=== PATIENT | male | born 1950 | race Caucasian/White ===

== ENCOUNTER 2017-07-24 05:45 | Emergency (ER) | payer OTHER ==
[~2017-07-24] VITALS: Ht 177.8 cm; Wt 108.9 kg
[~2017-07-24 05:45] MED LIST: CELEXA40 MG PO; DAZIDOX20 MG; DESYREL50 MG PO; HYDROCHLOROTH12.5 MG PO; LISINOPRIL/HCTZ PO; METHADONE HCL40 MG PO; NEURONTIN 300300 M1 PO; NORCO 5-325 TA1 EACH PO; OXYCODONE HCL20 M1 PO; TIZANIDINE HCL6 MG PO; TOPROL XL50 MG; TRAZODONE 150150 M1 PO; VALIUM5 MG PO
[2017-07-24 06:30] LABS: ABSOLUTE BASOPHILS 0.1 thou/uL (0.0-0.2); ABSOLUTE EOSINOPHILS 0.1 thou/uL (0.0-0.7); ABSOLUTE LYMPHOCYTES 1.4 thou/uL (0.8-5.3); ABSOLUTE MONOCYTES 0.7 thou/uL (0.0-1.2); ABSOLUTE NEUTROPHILS 7.5 thou/uL (1.6-8.1); BASOPHILS 0.9 %; EOSINOPHILS 0.7 %; HEMATOCRIT 41.2 % (42.0-52.0); HEMOGLOBIN 13.6 gm/dL (14.0-18.0); LYMPHOCYTES 14.7 %; MCH 29.3 pg (26.0-34.0); MCHC 32.9 g/dL (28.0-37.0); MONOCYTES 7.5 %; MPV 9.6 fl. (7.2-11.1); NUCLEATED RBCS 0 /100WBC; PLATELET COUNT* 242 thou/uL (150-400); POLYS 76.2 %; RBC 4.63 mil/uL (4.50-6.00); RDW-CV 14.3 % (10.5-14.5); WBC 9.8 thou/uL (4.0-11.0)
[2017-07-24 06:35] LABS: CALCIUM 8.8 mg/dL (8.5-10.1); CREATININE 1.6 mg/dL (0.6-1.3); POTASSIUM 3.7 mmol/L (3.5-5.1)
[2017-07-24 06:39] LABS: ALBUMIN 3.5 g/dL (3.4-5.0); TOTAL BILIRUBIN 0.3 mg/dL (<0.1-1.0); TOTAL PROTEIN 7.6 g/dL (6.4-8.2)
[2017-07-24 07:31] LABS: ALCOHOL < 10 mg/dL (<10)
[2017-07-24 07:34] LABS: ACETAMINOPHEN < 2 ug/mL (10-30)
[2017-07-24 07:39] LABS: PROTIME 9.9 Seconds (9.20-11.50)
[2017-07-24] MEDS ORDERED: ROXICODONE5 M2 PO (07:54)
[2017-07-24 08:08] LABS: URINE BILIRUBIN NEGATIVE (Negative); URINE BLOOD NEGATIVE (Negative); URINE CLARITY CLEAR; URINE COLOR YELLOW; URINE GLUCOSE-RANDOM NEGATIVE (Negative); URINE KETONES NEGATIVE (Negative); URINE LEUKOCYTES-REFLEX NEGATIVE (Negative); URINE NITRITE-REFLEX NEGATIVE (Negative); URINE PROTEIN 1+ (Negative); URINE SPECIFIC GRAVITY 1.015 (1.005-1.030); URINE UROBILINOGEN 0.2 E.U./dl (0.2-1.0)
[2017-07-24 08:14] VITALS: BP 202/104
[2017-07-24 08:23] LABS: AMP/METHAMP POSITIVE (Negative); BARBITURATES Negative (Negative); BENZODIAZEPINES Negative (Negative); COCAINE Negative (Negative); METHADONE Negative (Negative); OPIATES Negative (Negative); PCP Negative (Negative); THC POSITIVE (Negative)
== END 2017-07-24 08:17 | disposition home or self-care (01) ==
LOC: M.ERS 05:45
PROVIDERS: Emergency Medicine Emergency Medical Services; Family Medicine
DX: S40.012A Contusion of left shoulder, initial encounter (principal); S20.229A Contusion of unspecified back wall of thorax, initial encounter; S10.83XA Contusion of other specified part of neck, initial encounter; V49.9XXA Car occupant (driver) (passenger) injured in unspecified traffic accident, initial encounter; Y93.I9 Activity, other involving external motion; Y92.89 Other specified places as the place of occurrence of the external cause; Y99.8 Other external cause status; I10 Essential (primary) hypertension; Z88.5 Allergy status to narcotic agent; Z88.6 Allergy status to analgesic agent

== ENCOUNTER 2017-08-03 12:13 | Inpatient (IN) | payer OTHER ==
[2017-08-03] VITALS (7 sets, daily range): BP systolic 119–180; BP diastolic 50–93
[~2017-08-03] VITALS: Ht 182.9 cm; Wt 108.4 kg
[~2017-08-03 12:13] MED LIST changes: +ROXICODONE5 M2 PO
[2017-08-03 12:36] LABS: HEMOGLOBIN 13.6 gm/dL (14.0-18.0); MCH 29.4 pg (26.0-34.0); MCV 88.8 fL (80.0-100.0); MPV 8.6 fl. (7.2-11.1); NUCLEATED RBCS 0 /100WBC; PLATELET COUNT* 338 thou/uL (150-400); RBC 4.62 mil/uL (4.50-6.00); WBC 13.9 thou/uL (4.0-11.0)
[2017-08-03 12:48] LABS: ANION GAP 7 mmol/L (7-16); BUN 20 mg/dL (7-18); CALCIUM 8.7 mg/dL (8.5-10.1); CHLORIDE 106 mmol/L (98-107); CO2 28 mmol/L (21-32); GLUCOSE 91 mg/dL (70-99); POTASSIUM 4.1 mmol/L (3.5-5.1); SODIUM 141 mmol/L (136-145)
[2017-08-03 12:53] LABS: ALCOHOL < 10 mg/dL (<10); SALICYLATE < 2.8 mg/dL (2.8-20.0)
[2017-08-03 12:58] LABS: ACETAMINOPHEN < 2 ug/mL (10-30)
[2017-08-03 12:59] LABS: ALBUMIN 3.6 g/dL (3.4-5.0); ALKALINE PHOSPHATASE 95 U/L (46-116); NT-PRO BRAIN NAT PEPTIDE 3442 pg/mL (<300); SGOT 26 U/L (15-37); SGPT 27 U/L (30-65); TOTAL BILIRUBIN 0.3 mg/dL (<0.1-1.0); TOTAL PROTEIN 8.1 g/dL (6.4-8.2); TROPONIN-I LEVEL <0.06 ng/mL (<0.06)
[2017-08-03 13:00] LABS: URINE BILIRUBIN NEGATIVE (Negative); URINE BLOOD 1+ (Negative); URINE CLARITY CLEAR; URINE COLOR YELLOW; URINE GLUCOSE-RANDOM NEGATIVE (Negative); URINE KETONES NEGATIVE (Negative); URINE LEUKOCYTES-REFLEX NEGATIVE (Negative); URINE NITRITE-REFLEX NEGATIVE (Negative); URINE PROTEIN NEGATIVE (Negative); URINE UROBILINOGEN 0.2 E.U./dl (0.2-1.0)
[2017-08-03 13:07] LABS: AMP/METHAMP Negative (Negative); BARBITURATES Negative (Negative); BENZODIAZEPINES Negative (Negative); COCAINE Negative (Negative); METHADONE Negative (Negative); OPIATES Negative (Negative); PCP Negative (Negative); THC Negative (Negative)
[2017-08-03 13:27] LABS: ABSOLUTE LYMPHOCYTES 1.4 thou/uL (0.8-5.3); ABSOLUTE MONOCYTES 0.7 thou/uL (0.0-1.2); ABSOLUTE NEUTROPHILS 11.8 thou/uL (1.6-8.1); PLATELET ESTIMATE ADEQUATE
[2017-08-03 13:45] LABS: BACTERIA-REFLEX 1-9 Few /HPF (None Seen); CASTS None Seen /LPF (None Seen); CRYSTALS None Seen /LPF (None Seen); MUCUS None Seen strn/LPF (None Seen); SQUAMOUS 4-10 Moderate /LPF (0-3); URINE WBC-REFLEX 0-5 Rare /HPF (0-5)
--- NOTE | 2017-08-03 16:04 | EKG ---
[place] [address] ELECTROCARDIOGRAM REPORT Name: ALMA DRUMMOND Room: [place] [address] ADM IN [facility].#: [id number] Admission: 08/03/17 Attend Phys: Narayan Fine MD Discharge: Date of : 50 Report #: [id number] THIS REPORT FOR: //name// [facility] ED Test Date: 2017-08-03 Test Time: 13:01:49 Pat Name: ALMA DRUMMOND Department: Room: [facility] Gender: Branch Operation Evaluation Manager: Kwan VALENCIA : 1950 Requested By: Marcin Foster Order Number: [id number] MD: Alma Salvador Measurements Intervals [place] Rate: 86 P: 49 TX: 137 QRS: -36 QRSD: 140 T: 7 QT: 416 QTc: 498 Interpretive Statements Sinus rhythm Atrial premature complex Right bundle branch block Baseline wander in lead(s) III,aVL No previous ECG available for comparison Electronically Signed On 08-03-2017 16:04:30 TIRE LAYER by Alma Salvador [email or web address] <ELECTRONICALLY SIGNED> By: Alma Salvador MD, [facility] 08/03/17 1604 1301 1301 Alma Salvador MD, [facility] /EPI
[2017-08-03 16:08] LABS: INFLUENZA A ANTIGEN None Detected (None Detect); INFLUENZA B ANTIGEN None Detected (None Detect)
--- NOTE | 2017-08-03 16:53 | NUR ---
AT 1547, PATIENT BECAME AGITATED AND IMPULSIVE TRYING TO CLIMB OUT OF THE FOOT OF THE BED, PULLING AT LINDSEY CATHETER. DR STEPHENSON ENTERED THE ROOM AND OK'D THE REMOVAL OF THE LINDSEY AT THAT TIME AND ASSISTED WITH THE REMOVAL. PATIENT BEGAN THRASHING AROUND THE BED AND DR STEPHENSON ORDERED SOFT RESTRIANTS FOR SAFETY. UPON ATTEMPTING TO PLACE SOFT RESTRIANTS PATIENT BECAME MORE AGITATED AND AGGRESSIVE KICKING STAFF IN HEAD. ORDER AT 1600 WAS CHANGED TO VIOLENT RESTRAINTS.
--- NOTE | 2017-08-03 19:41 | NUR ---
ADMITTED TO RM 6 ON VENT VS WNL GAVE REPORT TO CHANCE GAMEZ RN.
[2017-08-04] VITALS (16 sets, daily range): BP systolic 117–1338; BP diastolic 49–91
[2017-08-04 04:43] LABS: ABSOLUTE BASOPHILS 0.1 thou/uL (0.0-0.2); ABSOLUTE LYMPHOCYTES 1.7 thou/uL (0.8-5.3); BASOPHILS 0.6 %; EOSINOPHILS 0.4 %; HEMATOCRIT 37.3 % (42.0-52.0); HEMOGLOBIN 12.5 gm/dL (14.0-18.0); LYMPHOCYTES 14.4 %; MCH 29.4 pg (26.0-34.0); MCHC 33.5 g/dL (28.0-37.0); MCV 87.6 fL (80.0-100.0); MONOCYTES 8.4 %; MPV 8.8 fl. (7.2-11.1); NUCLEATED RBCS 0 /100WBC; PLATELET COUNT* 330 thou/uL (150-400); POLYS 76.2 %; RBC 4.26 mil/uL (4.50-6.00); RDW-CV 14.8 % (10.5-14.5); WBC 11.9 thou/uL (4.0-11.0)
[2017-08-04 04:58] LABS: CALCIUM 8.3 mg/dL (8.5-10.1); CREATININE 1.8 mg/dL (0.6-1.3); POTASSIUM 4.3 mmol/L (3.5-5.1)
[2017-08-04 08:22] LABS: BE -1.5 mmol/L (-2 to +3); HCO3 21.3 mmol/L (22.0-26.0); PCO2 30.7 mmHg (35.0-45.0)
[2017-08-04 08:24] LABS: PO2 163.7 mmHg (75.0-100.0)
--- NOTE | 2017-08-04 15:40 | NUR ---
PT ADMITTED YESTERDAY WITH AMS. INTUBATED IN THE E.D., REMAINS ON VENT. NO FAMILY HERE AT THIS TIME. CASE MGT WILL CONTINUE TO FOLLOW.
--- NOTE | 2017-08-04 19:44 | NUR ---
RECEIVED REPORT FROM GIANFRANCO CABA. ASSESSMENTS CHARTED. AFEBRILE. PT HAD SEDATION VACATION TODAY. PROPOFOL INFUSING. STILL ON VENT AND SEDATED. REPORT GIVEN TO GIANFRANCO MARION.
[2017-08-05] VITALS (16 sets, daily range): BP systolic 114–189; BP diastolic 62–96
[2017-08-05 04:45] LABS: ALBUMIN 2.5 g/dL (3.4-5.0); CALCIUM 7.8 mg/dL (8.5-10.1); CREATININE 1.6 mg/dL (0.6-1.3); MAGNESIUM 2.6 mg/dL (1.8-2.4); POTASSIUM 3.9 mmol/L (3.5-5.1); TOTAL BILIRUBIN 0.3 mg/dL (<0.1-1.0); TOTAL PROTEIN 6.2 g/dL (6.4-8.2)
[2017-08-05 04:52] LABS: ABSOLUTE BASOPHILS 0.1 thou/uL (0.0-0.2); ABSOLUTE EOSINOPHILS 0.1 thou/uL (0.0-0.7); ABSOLUTE LYMPHOCYTES 1.7 thou/uL (0.8-5.3); ABSOLUTE MONOCYTES 0.9 thou/uL (0.0-1.2); ABSOLUTE NEUTROPHILS 8.1 thou/uL (1.6-8.1); BASOPHILS 0.7 %; EOSINOPHILS 0.9 %; HEMOGLOBIN 11.9 gm/dL (14.0-18.0); LYMPHOCYTES 15.9 %; MCH 29.3 pg (26.0-34.0); MCV 88.7 fL (80.0-100.0); MONOCYTES 8.5 %; MPV 8.9 fl. (7.2-11.1); NUCLEATED RBCS 0 /100WBC; PLATELET COUNT* 318 thou/uL (150-400); RBC 4.05 mil/uL (4.50-6.00); RDW-CV 14.8 % (10.5-14.5); WBC 10.9 thou/uL (4.0-11.0)
--- NOTE | 2017-08-05 06:15 | NUR ---
PT PROGRESSING TOWARD GOALS. REMAINS SEDATED ON VENTILATOR, PROPOFOL GTT INFUSING ORDERED. O2 SATS >95% THROUGHOUT THIS SHIFT. COMPLETE BED BATH GIVEN. VSS. PT HAS BEEN TURNED Q2HR THROUGHOUT THE NIGHT.
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
--- NOTE | 2017-08-05 10:09 | NUR ---
RECEIVED REPORT FROM GIANFRANCO CABA. ASSESSMENT CHARTED. AFEBRILE. PT HAD SEDATION VACATION AT 0900. BECAME RESTLESS AND STARTED TO THRASH AROUND. ONLY LASTED 15 MINUTES WITHOUT SEDATION. DID NOT TOLERATE THE SEDATION VACTION. DR ALONSO AWARE AND AGREES. PT ON PROPOFOL GTT. WILL CONTINUE TO MONITOR.
--- NOTE | 2017-08-05 11:33 | CON ---
[facility] [address] [place] [address] CONSULTATION Name: BHANUCHAMP Room: [address] IN .R.#: [id number] Admission: 08/03/17 Attend Phys: Narayan Fine MD Discharge: Date of : 50 Report #: [id number] THIS REPORT FOR: //name// CC: Narayan Fine Fredo New DATE OF SERVICE: 08/04/2017 ATTENDING PHYSICIAN: Narayan Fine M.D. REASON FOR EVALUATION: Leukocytosis and marked encephalopathy. HISTORY OF PRESENT ILLNESS: Chart reviewed and the patient examined. This is a 67-year-old with a history of hypertension, otherwise some wound type history. Actually, he resides in a hotel, was found minimally responsive. There is a concern due to multiple empty pill bottles, although drug screen was fairly unremarkable. He did seem to improve initially only to have worsening signs and symptoms, ultimately needed to be intubated and now is in the Intensive Care Unit, sedated. It is not clear that he has had any fevers. It is uncertain if he has had falls. He was found to have moderately elevated white count to about 14,000 on admission. Initial chest x-ray was fairly clear, although on followup there is question of some basilar infiltrates. Blood cultures collected yesterday are sterile thus far. Urinalysis was unremarkable in terms of pyuria. Empirically started on piperacillin and tazobactam. ALLERGIES: Listed to MORPHINE, CODEINE, TRAMADOL. CURRENT MEDICATIONS: Include pantoprazole, lisinopril, enoxaparin, Zosyn, fentanyl, oxycodone, lorazepam. PAST MEDICAL HISTORY: As described above, hypertension, chronic pain syndrome with low back pain, compression fracture of the cervical spine, some renal insufficiency. PAST SURGICAL HISTORY: Bilateral knee and ankle surgeries. SOCIAL HISTORY: Unknown. FAMILY HISTORY: Unknown. REVIEW OF SYSTEMS: Unobtainable. PHYSICAL EXAMINATION: GENERAL: He appears older than his stated age, in moderate distress. He is maintained on the vent. He is not arousable, appears chronically ill [place] [address] CONSULTATION Name: ALMA DRUMMOND Room: [address] IN [facility]#: [id number] Admission: 08/03/17 Attend Phys: Narayan Fine MD Discharge: Date of : 50 Report #: [id number] VITAL SIGNS: Temperature 98.4, pulse 69, respirations 16, blood pressure is 138/78. SKIN: Warm, dry. HEENT AND NECK: Neck appears to be supple, has as an ET tube in place. LUNGS: Few scattered coarse sounds with crackles at the bases. HEART: Appears to be regular. No appreciated murmur. ABDOMEN: Soft. There is no apparent peritoneal sign. GENITOURINARY: Deferred. RECTAL: Deferred. LABORATORY DATA: Blood cultures sterile thus far. ABGs from this morning, pH 7.460, pCO2 of 30.7, pO2 of 163.7, FiO2 40%. Chest x-ray, basilar infiltrates versus atelectasis. Electrolytes: Sodium 143, potassium 4.3, chloride 108, bicarbonate is 28, anion gap is 7. BUN and creatinine 19 and 1.8, creatinine is down from 2.0 on admission. Glucose of 99. Estimated GFR of 38. CBC: White count 11.9, H and H 12.5 and 37.3, platelets of 330. CT of the pelvis noted the inflammatory masses, ascites, bowel obstruction and other acute process, some colonic diverticulosis, patchy dependent bibasilar atelectasis versus pneumonitis. Influenza antigen was negative. Urinalysis 0-5 white cells. CBC: White count initially of 13.9, H and H 13.6 and 41.0, platelets of 338, ____ primarily neutrophilia. Drug screen was negative. ASSESSMENT AND PLAN: Leukocytosis. The patient did worsen this admission. It is difficult to ascertain his mental status at this point, but it is not unreasonable to continue empiric antimicrobial therapy, certainly at risk for aspiration, pneumonitis seems most likely in this setting. I do not think there is evidence of any bacterial meningitis based on history and/or physical at this point. We will see how he does clinically, attempt to wean off support as allowed. <ELECTRONICALLY SIGNED> By: Romel Rocha MD 08/05/17 1133 1101 1905Josalo Rocha MD /nt
--- NOTE | 2017-08-05 13:02 | NUR ---
HAND OFF REPORT GIVEN TO GIANFRANCO HOBBS. ASSESSMENT CHARTED. AFEBRILE. ALL QUESTIONS ANSWERED. PT STABLE.
--- NOTE | 2017-08-05 18:51 | NUR ---
PATIENT VERY RESTLESS, ATIVAN GIVEN FOR RESTLESSNESS. NO APPARENT PAIN, NAUSEA AT THIS TIME. DIAPHORETIC AT TIMES. STILL REMAINS ON VENT, NO FAMILY HAS VISITED. BED IN LOWEST POSITION, FALL PREACUTIONS IN PLACE, CASINO CASHIER IN PLACE.
--- NOTE | 2017-08-05 21:40 | NUR ---
B/P CUFF CYCLING, AUTOMATIC B/P CUFF READING MOTION ERROR, PT NOTED TO BE SEDATED WITH FINE SEIZURE LIKE ACIVITY, FINE CONTINUES RYTHMIC TENSING/TREMOR ACTIVITY. ATIVAN 2MG IVP GIVEN, SEIZURE LIKE ACTIVITY LASTING APROX 5MIN IN DURATION, AUCTOMATIC B/P CUFF MOVED SEVERAL TIMES TO OBTAIN READING, CALLED DR HOLLEY TO UPDATE ON SEIZURE LIKE ACTIVITY, NEW ORDERS RECEIVED FOR KEPPRA 500MG IVPB X1 STAT FOLLOWED BY KEPPRA 500MG IVPB BID, START BANNANA BAG IV FLUIDS 100CC/HR, AND EEG IN AM UNLESS SEZURE LIKE ACTIVITY UNABLE TO BE STOPPED THEN HAVE EEG DONE STAT.
[2017-08-06] VITALS (17 sets, daily range): BP systolic 107–175; BP diastolic 46–89
--- NOTE | 2017-08-06 02:43 | NUR ---
GAS REGULATOR REPAIRER HELPER IN ROOM TO OBTAIN ORDERED EEG
--- NOTE | 2017-08-06 03:20 | NUR ---
LENCHO, DRY TALC RACKER, PLACED CALL TO DR HOLLEY TO UPDATE IN PROGRESS EEG RESULTS, SPOKE WITH DR HOLLEY FOR FURTHER OBSERVED ASSESSMENT FINDINGS R/T SEIZURE LIKE ACTIVITY NOTED ON 08/05/17 AT APROX 2032, NEW ORDERS RECEIVED TO GIVE X1 EXTRA DOSE KEPPRA 500MG IVPB WITH ANY SEIZURE LIKE ACTIVIY OBSERVATIONS DURING REST OF NOC AND TO COMMUNICATE IN AM WITH PULMONARY DR, PT NEED TO HAVE REPEAT CT OR MRI HEAD IF MEDICALLY STABLE IN AM.
[2017-08-06 05:24] LABS: BE -3.9 mmol/L (-2 to +3); PO2 104.3 mmHg (75.0-100.0); pH 7.401 (7.340-7.450)
--- NOTE | 2017-08-06 07:33 | NUR ---
MINIMAL PROGRESSION TOWARDS GOALS, NO FURTHER SEIZURE ACTIVITY NOTED AFTER EEG, REMAINS ON PROPOFOL 70MCG/KG/MIN VIA INFUSION PUMP FOR SEDATION TO KEEP RASS -3 PER ORDER, SB/SR TRACING ON SHELL PRESS OPERATOR, NO CHANGE IN VENTILATOR SETTINGS DURING SHIFT, BANNANA BAG INFUSING 100CC/HR PER ORDER, SIDERAILS PADDED FOR SEIZURE PRECAUTIONS, AFEBRILE, FULL BED BATH GIVEN, TURNED AND REPOSITIONING Q2 AND PRN, BED REMAINS IN LOW AND LOCKED POSITON.
[2017-08-06 12:07] LABS: ABSOLUTE BASOPHILS 0.1 thou/uL (0.0-0.2); ABSOLUTE EOSINOPHILS 0.2 thou/uL (0.0-0.7); ABSOLUTE LYMPHOCYTES 1.1 thou/uL (0.8-5.3); ABSOLUTE MONOCYTES 0.6 thou/uL (0.0-1.2); ABSOLUTE NEUTROPHILS 6.9 thou/uL (1.6-8.1); HEMATOCRIT 36.2 % (42.0-52.0); HEMOGLOBIN 11.8 gm/dL (14.0-18.0); LYMPHOCYTES 12.1 %; MCHC 32.7 g/dL (28.0-37.0); MCV 88.9 fL (80.0-100.0); MONOCYTES 7.2 %; MPV 8.4 fl. (7.2-11.1); NUCLEATED RBCS 0 /100WBC; PLATELET COUNT* 310 thou/uL (150-400); POLYS 77.7 %; RBC 4.07 mil/uL (4.50-6.00); RDW-CV 15.2 % (10.5-14.5); WBC 8.9 thou/uL (4.0-11.0)
[2017-08-06 12:25] LABS: ALBUMIN 2.3 g/dL (3.4-5.0); CALCIUM 7.5 mg/dL (8.5-10.1); CREATININE 1.3 mg/dL (0.6-1.3); POTASSIUM 4.1 mmol/L (3.5-5.1); TOTAL BILIRUBIN 0.5 mg/dL (<0.1-1.0); TOTAL PROTEIN 6.2 g/dL (6.4-8.2)
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
--- NOTE | 2017-08-06 19:53 | NUR ---
PT SEDATION VACATION FROM 2994-0811 AM. PT UNABLE TO OPEN EYES, FOLLOW COMMANDS OR RESPOND TO HAND GRASPS. PROPOFOL INCREASED FOR TRANSPORT TO CT AND DECREASE UPON RETURN. TUBE FEEDING STARTED PER RESEARCH ADVISOR RECOMMENDATION, PEPTIMIN INTENSE WITH A GOAL RATE OF 30. PT TOLERATING TUBE FEEDINGS WITHOUT DIFFICULTY.Q2H TURNS IN THE DAY. LIQUID STOOL X1. PT'S SON AND SISTER ARRIVED TO THE ICU THIS EVENING. THEIR CONTACT INFORMATION HAS BEEN ADDED INTO THE AUTHORIZED CONTACT INTERVENTION. VOICE MESSAGE LEFT FOR CASE MANAGEMENT, SON WILL BE BACK TOMORROW TO DISCUSS WHAT WILL HAPPEN WITH HIS DAD WHEN HE IS DISCHARGED.
[2017-08-07] VITALS (30 sets, daily range): BP systolic 79–172; BP diastolic 38–98
[2017-08-07 03:00] LABS: ABSOLUTE BASOPHILS 0.1 thou/uL (0.0-0.2); ABSOLUTE EOSINOPHILS 0.1 thou/uL (0.0-0.7); ABSOLUTE LYMPHOCYTES 1.4 thou/uL (0.8-5.3); ABSOLUTE MONOCYTES 0.8 thou/uL (0.0-1.2); ABSOLUTE NEUTROPHILS 7.7 thou/uL (1.6-8.1); BASOPHILS 0.8 %; EOSINOPHILS 1.5 %; HEMATOCRIT 35.8 % (42.0-52.0); HEMOGLOBIN 11.8 gm/dL (14.0-18.0); LYMPHOCYTES 13.6 %; MCHC 32.8 g/dL (28.0-37.0); MCV 88.4 fL (80.0-100.0); MPV 8.3 fl. (7.2-11.1); NUCLEATED RBCS 0 /100WBC; PLATELET COUNT* 334 thou/uL (150-400); POLYS 76.1 %; RBC 4.05 mil/uL (4.50-6.00); RDW-CV 15.6 % (10.5-14.5); WBC 10.2 thou/uL (4.0-11.0)
[2017-08-07 03:12] LABS: ALBUMIN 2.4 g/dL (3.4-5.0); CALCIUM 8.1 mg/dL (8.5-10.1); CREATININE 1.4 mg/dL (0.6-1.3); POTASSIUM 4.2 mmol/L (3.5-5.1); TOTAL BILIRUBIN 0.4 mg/dL (<0.1-1.0); TOTAL PROTEIN 6.5 g/dL (6.4-8.2)
--- NOTE | 2017-08-07 05:11 | NUR ---
PT. REMAINS SEDATED ON VENTILATOR, PROPOFOL GTT. TTT TODAY, WILL TURN SEDATION AND TUBE FEED OFF. SINUS RHYTHM/TACHY AT TIMES. T-MAX 99.9. DIAPHORETIC. IV IN RIGHT FOREARM INFILTRATED, 2 NEW IV'S STARTED IN LEFT UPPER ARM AND LEFT WRIST. WILL CONTINUE TO MONITOR.
--- NOTE | 2017-08-07 06:30 | NUR ---
PROPOFOL AND TUBE FEEDING OFF AT THIS TIME FOR TTT
--- NOTE | 2017-08-07 07:15 | NUR ---
ASSUME CARE OF PT. PT LIGHTLY SEDATED AND THRASHING IN BED. PROPOFOL ON AT 40 MCG/KG/MIN. PT GIVEN FENTANYL AND ATIVAN. WILL CONTINUE TO MONITOR
--- NOTE | 2017-08-07 09:39 | NUR ---
SON AT BS. UPDATED ON CARE. HE STATES THAT HE WENT TO PT HOTEL ROOM AND FOUND MULTIPLE PILL BOTTLES THAT CONTAINED WHAT THEY IDENTIFIED BACLOFEN AND CELEXA. ALSO DOZENS OF EMPTY BOTTLES OF BUTANE. NO DRUGS OR ALCOHOL BOTTLES FOUND. SON HAS PT'S WALLET AND CHECKBOOK AND WILL KEEP UNTIL DC. PHONE AND CLOTHING AT BS
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
--- NOTE | 2017-08-07 11:27 | NUR ---
ORDER FOR LP TODAY. PT UNABLE TO SIGN CONSENT HE IS SEDATED. PT HAS NO DPOA. SON IS AT BS AND PROCEDURE EXPLAINED. SON AGREES TO PROCEDURE.
[2017-08-07 11:28] LABS: APTT 34.5 Seconds (25.0-31.3); PROTIME 9.6 Seconds (9.20-11.50)
--- NOTE | 2017-08-07 17:00 | NUR ---
PROPOFOL GTT TURNED DOWN TO 20 MCG/KG/MIN. PT TOLERATING WELL
[2017-08-07 17:18] LABS: CSF GLUCOSE 60 mg/dl (40-70); CSF PROTEIN 31.2 mg/dl (15-45)
[2017-08-07 17:59] LABS: CSF CLARITY CLEAR; CSF COLOR COLORLESS; CSF RBC 0 /mm3; CSF WBC 1 /mm3 (0-10); VOLUME 9 ml
--- NOTE | 2017-08-07 18:36 | NUR ---
PT SEDATED ON VENT. DID NOT TOLERATE SEDATION TURNED OFF THIS AM. TF INFUSING AT GOAL RATE OF 30 ML/HR,MINIMAL RESIDUALS. OG IN PLACE.LINDSEY CATH DRAINING GREEN URINE. BRADYCARDIC AND HYPOTENSION THIS EVENING WHEN LYING FLAT FOR TRANSPORT TO LP,RESOLVED WITH IVF AND REPOSITIONING. PT REPOSITIONED FREQUENTLY. RESTRAINTS TO BILAT WRISTS FOR SAFETY
[2017-08-08] VITALS (16 sets, daily range): BP systolic 107–180; BP diastolic 44–90
[2017-08-08 06:18] LABS: HEMATOCRIT 37.7 % (42.0-52.0); HEMOGLOBIN 12.1 gm/dL (14.0-18.0); MCH 28.9 pg (26.0-34.0); MCHC 32.1 g/dL (28.0-37.0); MCV 90.1 fL (80.0-100.0); MPV 8.4 fl. (7.2-11.1); NUCLEATED RBCS 0 /100WBC; PLATELET COUNT* 346 thou/uL (150-400); RBC 4.18 mil/uL (4.50-6.00); RDW-CV 15.9 % (10.5-14.5)
[2017-08-08 06:27] LABS: ALBUMIN 2.5 g/dL (3.4-5.0); CALCIUM 8.5 mg/dL (8.5-10.1); CREATININE 1.6 mg/dL (0.6-1.3); POTASSIUM 5.6 mmol/L (3.5-5.1); TOTAL BILIRUBIN 0.5 mg/dL (<0.1-1.0); TOTAL PROTEIN 7.3 g/dL (6.4-8.2)
[2017-08-08 06:56] LABS: PREALBUMIN 21.2 mg/dL (18.0-35.7)
[2017-08-08 07:04] LABS: ABSOLUTE LYMPHOCYTES 0.6 thou/uL (0.8-5.3); ABSOLUTE MONOCYTES 0.2 thou/uL (0.0-1.2); ABSOLUTE NEUTROPHILS 7.2 thou/uL (1.6-8.1)
[2017-08-08 07:05] LABS: PLATELET ESTIMATE ADEQUATE
[2017-08-08 09:11] LABS: BE -9.8 mmol/L (-2 to +3); HCO3 14.9 mmol/L (22.0-26.0); PCO2 29.7 mmHg (35.0-45.0); PO2 82.2 mmHg (75.0-100.0); pH 7.319 (7.340-7.450)
--- NOTE | 2017-08-08 13:22 | EKG ---
[place] [address] ELECTROCARDIOGRAM REPORT Name: ALMA DRUMMOND Room: [address] ADM IN M.R.#: [id number] Admission: 08/03/17 Attend Phys: Narayan Fine MD Discharge: Date of : 50 Report #: [id number] THIS REPORT FOR: //name// [facility] Test Date: 2017-08-07 Test Time: 16:51:07 Pat Name: ALMA DRUMMOND Department: Room: [address] Gender: M Sand Mixer: SSULLMARSHA : 1950 Requested By: Narayan Fine Order Number: [id number] Reading MD: Tramaine Garcia Measurements Intervals [place] Rate: 59 P: 62 KS: 141 QRS: -32 QRSD: 140 T: 22 QT: 483 QTc: 479 Interpretive Statements Sinus rhythm Right bundle branch block Compared to ECG 08/03/2017 13:01:49 Atrial premature complex(es) no longer present Electronically Signed On 08-08-2017 13:21:52 ARBORICULTURE INSTRUCTOR by Tramaine Garcia [email or web address] <ELECTRONICALLY SIGNED> By: Tramaine Garcia MD, [facility] 08/08/17 1321 1651 1651 Tramaine Garcia MD, [facility] /EPI
--- NOTE | 2017-08-08 19:31 | NUR ---
FAILED TRIAL. REMAINS ON VENT. TURNED Q TWO HOURS.
--- NOTE | 2017-08-08 21:43 | NUR ---
RECIEVED REPORT AND ASSUMED CARE OF PT AT 1900. PT INTUBATED AND SEDATED ON VENTILATOR. PT RESTLESS AT 1999, PROPOFOL INCREASED TO 30 MCG'S. PT NO LONGER RESTLESS.
[2017-08-09] VITALS (16 sets, daily range): BP systolic 108–200; BP diastolic 49–92
--- NOTE | 2017-08-09 02:56 | NUR ---
pt completed 30 minute trial per rt.
[2017-08-09 03:04] LABS: BE -6.4 mmol/L (-2 to +3); HCO3 18.4 mmol/L (22.0-26.0); PCO2 34.5 mmHg (35.0-45.0); PO2 88.6 mmHg (75.0-100.0); pH 7.346 (7.340-7.450)
[2017-08-09 04:21] LABS: ABSOLUTE LYMPHOCYTES 0.6 thou/uL (0.8-5.3); ABSOLUTE MONOCYTES 0.1 thou/uL (0.0-1.2); ABSOLUTE NEUTROPHILS 7.1 thou/uL (1.6-8.1); BASOPHILS 0.3 %; HEMATOCRIT 36.2 % (42.0-52.0); HEMOGLOBIN 11.5 gm/dL (14.0-18.0); LYMPHOCYTES 7.1 %; MCH 28.7 pg (26.0-34.0); MCHC 31.7 g/dL (28.0-37.0); MCV 90.4 fL (80.0-100.0); MONOCYTES 1.5 %; NUCLEATED RBCS 0 /100WBC; PLATELET COUNT* 332 thou/uL (150-400); POLYS 91.1 %; RBC 4.01 mil/uL (4.50-6.00); RDW-CV 15.5 % (10.5-14.5); WBC 7.8 thou/uL (4.0-11.0)
[2017-08-09 04:49] LABS: PREALBUMIN 27.9 mg/dL (18.0-35.7)
[2017-08-09 04:54] LABS: ALBUMIN 2.4 g/dL (3.4-5.0); CALCIUM 8.5 mg/dL (8.5-10.1); CREATININE 1.7 mg/dL (0.6-1.3); POTASSIUM 5.1 mmol/L (3.5-5.1); TOTAL BILIRUBIN 0.4 mg/dL (<0.1-1.0); TOTAL PROTEIN 6.9 g/dL (6.4-8.2)
--- NOTE | 2017-08-09 15:50 | NUR ---
REMAINS ON VENT GRANDAUGHTER AT BEDSIDE. AFEBRILE TOLERATING TUBE FEEDING.
[2017-08-10] VITALS (23 sets, daily range): BP systolic 90–183; BP diastolic 30–70
[2017-08-10 04:34] LABS: ABSOLUTE LYMPHOCYTES 0.8 thou/uL (0.8-5.3); ABSOLUTE MONOCYTES 0.4 thou/uL (0.0-1.2); ABSOLUTE NEUTROPHILS 6.3 thou/uL (1.6-8.1); BASOPHILS 0.3 %; HEMATOCRIT 37.5 % (42.0-52.0); HEMOGLOBIN 12.3 gm/dL (14.0-18.0); LYMPHOCYTES 11.2 %; MCH 29.2 pg (26.0-34.0); MCHC 32.9 g/dL (28.0-37.0); MCV 88.8 fL (80.0-100.0); MONOCYTES 4.9 %; MPV 8.4 fl. (7.2-11.1); NUCLEATED RBCS 0 /100WBC; PLATELET COUNT* 341 thou/uL (150-400); POLYS 83.6 %; RBC 4.22 mil/uL (4.50-6.00); WBC 7.5 thou/uL (4.0-11.0)
[2017-08-10 04:42] LABS: ALBUMIN 2.3 g/dL (3.4-5.0); CALCIUM 8.3 mg/dL (8.5-10.1); CREATININE 1.5 mg/dL (0.6-1.3); POTASSIUM 4.9 mmol/L (3.5-5.1); TOTAL BILIRUBIN 0.4 mg/dL (<0.1-1.0); TOTAL PROTEIN 6.7 g/dL (6.4-8.2)
[2017-08-10 05:17] LABS: PREALBUMIN 36.7 mg/dL (18.0-35.7)
--- NOTE | 2017-08-10 07:52 | NUR ---
ASSUMED CARE OF PATIENT AFTER RECEIVING BEDSIDE REPORT. ASSESSMENT COMPLETED, VSS. PATIENT INTUBATED AND SEDATED. CLINICAL DATA ABSTRACTOR IN PLACE, SINUS RHYTHM NOTED. CALL LIGHT WITHIN REACH, USE REINFORCED. BED ALARM ON. RESTRAINTS IN PLACE. SEDATION VACATION PLANNED FOR 0800. CODE STATUS TO BE ADDRESSED WITH FAMILY WHEN THEY ARE HERE. WILL CONTINUE TO MONITOR.
[2017-08-10 09:34] LABS: BE -4.5 mmol/L (-2 to +3); HCO3 21.6 mmol/L (22.0-26.0); PCO2 43.5 mmHg (35.0-45.0); PO2 87.9 mmHg (75.0-100.0); pH 7.314 (7.340-7.450)
--- NOTE | 2017-08-10 18:01 | NUR ---
PATIENT DID WELL THROUGHOUT SHIFT. SEDATION VACATION STARTED AT 0800, PATIENT NEVER RESPONDED WELL OFF OF SEDATION SO SEDATION WAS NOT RESTARTED DURING DAY SHIFT. RN REPEATEDLY TRIED TO ELICIT A RESPONSE TO PAIN AND COMMAND BUT PATIENT DID NOT RESPOND WELL. PATIENT HAD MILD REACTION AT THE END OF THE SHIFT TO NOXIOUS STIMULI BUT NOT PURPOSEFUL MOVEMENTS AND NO RESPONSE TO COMMANDS. PATIENT TOLERATED TUBE FEEDING WELL AND DID WELL ON T-TUBE TRIAL. VSS, AFEBRILE. BEDSIDE REPORT TO BE GIVEN TO ONCOMING SHIFT.
[2017-08-11] VITALS (22 sets, daily range): BP systolic 80–200; BP diastolic 39–87
[2017-08-11 05:36] LABS: BE -5.9 mmol/L (-2 to +3); HCO3 20.3 mmol/L (22.0-26.0); PCO2 42.6 mmHg (35.0-45.0); PO2 76.6 mmHg (75.0-100.0)
[2017-08-11 05:39] LABS: pH 7.297 (7.340-7.450)
--- NOTE | 2017-08-11 06:41 | NUR ---
PT NOT PROGRESSING TOWARD GOALS. PT'S TUBE FEEDING STOPPED THIS AM. FLUSHED PT'S OG TUBE WITH AM MEDS. LARGE AMOUNT OF TUBE FEED AND MUCUS POURED OUT OF PT'S MOUTH. TUBE FEEDING STOPPED, SUCTIONED COPIUS AMOUNTS OF MUCUS AND TUBE FEED OUT OF MOUTH AND THROAT. PT TURNED HEAD SIDE TO SIDE WHEN SUCTIONED. PT UNRESTRAINED SINCE 0. PT DID NOT MOVE ARMS OR HANDS DURING SUCTIONING. PT HAS LITTLE TO NO GAG REFLEX.
--- NOTE | 2017-08-11 07:28 | NUR ---
ASSUMED CARE OF PATIENT AFTER RECEIVING BEDSIDE REPORT. ASSESSMENT COMPLETED, VSS. PATIENT REMAINS OFF OF SEDATION. NEW OG TO BE PLACED THIS AM. PICC LINE TO BE PLACED TODAY FOR POOR PERIPHERAL ACCESS. PATIENT STILL UNRESPONSIVE. SCREWDOWN OPERATOR IN PLACE, SINUS RHYTHM NOTED. PATIENT REMAINS ON VENTILATOR. BED ALARM ON. CALL LIGHT WITHIN REACH. WILL CONTINUE TO MONITOR.
[2017-08-11 09:05] LABS: HEMATOCRIT 39.5 % (42.0-52.0); HEMOGLOBIN 12.7 gm/dL (14.0-18.0); MCH 28.6 pg (26.0-34.0); MCV 89.2 fL (80.0-100.0); MPV 8.1 fl. (7.2-11.1); NUCLEATED RBCS 0 /100WBC; PLATELET COUNT* 351 thou/uL (150-400); RBC 4.43 mil/uL (4.50-6.00); RDW-CV 15.2 % (10.5-14.5); WBC 13.7 thou/uL (4.0-11.0)
[2017-08-11 09:22] LABS: ALBUMIN 2.4 g/dL (3.4-5.0); CALCIUM 8.6 mg/dL (8.5-10.1); CREATININE 1.6 mg/dL (0.6-1.3); POTASSIUM 4.2 mmol/L (3.5-5.1); TOTAL BILIRUBIN 0.5 mg/dL (<0.1-1.0); TOTAL PROTEIN 6.7 g/dL (6.4-8.2)
[2017-08-11 09:30] LABS: ABSOLUTE EOSINOPHILS 0.1 thou/uL (0.0-0.7); ABSOLUTE LYMPHOCYTES 1.6 thou/uL (0.8-5.3); ABSOLUTE MONOCYTES 0.7 thou/uL (0.0-1.2); ABSOLUTE NEUTROPHILS 11.2 thou/uL (1.6-8.1); ANISOCYTOSIS 1+; PLATELET ESTIMATE ADEQUATE
[2017-08-11 09:31] LABS: POIKILOCYTOSIS 1+
--- NOTE | 2017-08-11 10:30 | NUR ---
PT REMAINS ON VENT, HAS BEEN OFF SEDATION FOR 24 HOURS BUT IS NOT RESPONDING. PER NURSING, AFTER DISCUSSION WITH FAMILY PATIENT IS NOW A NO CODE. NO FAMILY HERE AT THIS TIME.
--- NOTE | 2017-08-11 10:39 | NUR ---
CONSULTED TO PLACE PACE PICC RELATED TO DIFFICULT LAB DRAW AND LENTH OF THERAPY NEEDED. PT ON VENT AND UNRESPONSIVE. CONSENT NOTED ON CHART. TIME OUT COMPLETED WITH PRIMARY NURSE JOI. RIGHT SHOULDER SURGERY NOTED IN PT HISTORY. LEFT UPPER ARM ASSESSED AND CEPHALIC VEIN WIDLEY PATENT. A 4FR DOUBLE LUMAN POWER PICC PLACED PER HOSPITAL POLICY. LINE WAS NOT TRIMMED AND WAS ADVANCED WITH OUT DIFFICULTY. LINE CONFIMED AT 3CM EXTERNAL WITH SHERLOCK 3CG. UNABLE TO GET 3CG PICTURE TO PRINT. STAT CHEST X-RAY ORDERED. PER DR. Simi MONZON TIP OF LINE IS AT CAJ AND GOOD POSITION FOR USE. PRIMARY NURSING NOTIFIED AND LINE RELEASED FOR USE.
--- NOTE | 2017-08-11 10:48 | NUR ---
REPORT GIVEN TO GIANFRANCO PATEL. PATIENT STABLE, VSS. OG REPLACED.
[2017-08-12] VITALS (21 sets, daily range): BP systolic 114–207; BP diastolic 53–109
[2017-08-12 03:59] LABS: ABSOLUTE LYMPHOCYTES 0.6 thou/uL (0.8-5.3); ABSOLUTE MONOCYTES 0.1 thou/uL (0.0-1.2); ABSOLUTE NEUTROPHILS 11.5 thou/uL (1.6-8.1); BASOPHILS 0.2 %; HEMATOCRIT 38.7 % (42.0-52.0); HEMOGLOBIN 12.9 gm/dL (14.0-18.0); LYMPHOCYTES 4.6 %; MCH 29.6 pg (26.0-34.0); MCHC 33.3 g/dL (28.0-37.0); MCV 89.1 fL (80.0-100.0); MPV 8.4 fl. (7.2-11.1); NUCLEATED RBCS 0 /100WBC; PLATELET COUNT* 351 thou/uL (150-400); POLYS 94.2 %; RBC 4.34 mil/uL (4.50-6.00); WBC 12.2 thou/uL (4.0-11.0)
[2017-08-12 04:17] LABS: PREALBUMIN > 50.0 mg/dL (18.0-35.7)
[2017-08-12 04:28] LABS: ALBUMIN 2.4 g/dL (3.4-5.0); CREATININE 1.4 mg/dL (0.6-1.3); TOTAL BILIRUBIN 0.5 mg/dL (<0.1-1.0); TOTAL PROTEIN 7.2 g/dL (6.4-8.2)
--- NOTE | 2017-08-12 08:00 | NUR ---
initial assestment competed. pt restless mslightly thrashing haed from side to side. pt is not tracking with eyes but will turn head to talking staff member. clapped at side of head pt did not turn head. f/c draing cameron urine. pt remains off in gtt sedation. 2 mg ativan given ivp due to restlessness.
--- NOTE | 2017-08-12 11:45 | NUR ---
EEG being obtained in room.
--- NOTE | 2017-08-12 12:19 | NUR ---
SPOKE WITH DR. BARRERA THIS MORNING REGARDING PLAN OF CARE. PER HIS REQUEST, CONTACTED FAMILY TO DISCUSS NEXT STEPS. SPOKE WITH SISTER MOIRA ([phone]). SHE SAID SHE HAS TALKED WITH HER SIBLINGS AND THEY ALL AGREE THAT PT WOULD NOT WANT TO LIVE 'HOOKED TO A BUNCH OF MACHINES.' SHE SAID THEY ALL AGREE WITH 'TAKE HIM OFF THE VENTILATOR AND LET THE LORD DECIDE.' SHE SAID THAT SHE ISN'T SURE WHAT HIS SON ALMA WILL WANT TO DO, SIBLINGS WILL ALL SUPPORT WHATEVER DECISION ALMA MAKES. PT HAS ANOTHER SON YANY WHO LIVES IN [place], SHE ISN'T SURE IF YANY HAS BEEN TO THE HOSPITAL TO SEE HIS FATHER OR NOT. CALLED SON ALMA ([phone]) AND LEFT VM FOR HIM TO CALL ME WHEN HE IS ABLE. SON UNABLE TO TAKE PHONE CALLS WHILE HE IS AT WORK.
--- NOTE | 2017-08-12 20:54 | NUR ---
PT HAD NO SEDATION ALL DAY. THIS AFTERNOON AT APPX 1930 PT HEART RATE 110'S PT VERY RESTLESS, PT HYPERTENSIVE. 50 MCGS OF FENTANYL GIVEN. PT MORE RESTFULL. SON BRISA HAD BEEN HERE AND HAS SINCE LEGFT. PT SON TALKED WITH CASE MANAGEMENT IN LENGTH ABOUT PT CONDITION AND WHAT HIS OPTIONS WERE FOR FURTHER CARE. SON HAD TOLD THIS STAFF MEMBER THAT HE WOULD MAKE A DECISSION BY TOMORROW HOW TO PROCEDE WITH PT CARE. PT TURNED THROUGH SHIFT, PT TOLERATING TUBE FEEDING AND H2O FLUSHES.
[2017-08-13] VITALS (14 sets, daily range): BP systolic 103–205; BP diastolic 54–90
[2017-08-13 04:55] LABS: ALBUMIN 2.5 g/dL (3.4-5.0); CALCIUM 9.1 mg/dL (8.5-10.1); CREATININE 1.3 mg/dL (0.6-1.3); POTASSIUM 4.9 mmol/L (3.5-5.1); TOTAL BILIRUBIN 0.4 mg/dL (<0.1-1.0)
[2017-08-13 05:00] LABS: ABSOLUTE LYMPHOCYTES 0.7 thou/uL (0.8-5.3); ABSOLUTE MONOCYTES 0.3 thou/uL (0.0-1.2); ABSOLUTE NEUTROPHILS 10.7 thou/uL (1.6-8.1); BASOPHILS 0.2 %; HEMATOCRIT 37.4 % (42.0-52.0); LYMPHOCYTES 6.1 %; MCH 28.8 pg (26.0-34.0); MONOCYTES 2.6 %; MPV 8.6 fl. (7.2-11.1); NUCLEATED RBCS 0 /100WBC; PLATELET COUNT* 336 thou/uL (150-400); POLYS 91.1 %; RBC 4.16 mil/uL (4.50-6.00); WBC 11.8 thou/uL (4.0-11.0)
[2017-08-13 05:17] LABS: PREALBUMIN > 50.0 mg/dL (18.0-35.7)
--- NOTE | 2017-08-13 07:15 | NUR ---
PATIENT PROGRESSING TOWARDS GOALS. HE FOLLOWS COMMANDS, OPENS AND CLOSES YES WHEN ASKED. PT SQUEEZES HANDS, VERY WEAK. BP ELEVATED. ADMINISTERED HYDRALAZINE BP DECREASED BUT HAS ELEVATED AGAIN. [id number] AND ORAL CARE GIVEN. FULL BED BATH WITH LINEN CHANGED. PT REMAINS OFF SEDATION. TUBE FEED TURNED OFF D/T HIGH RESIDUAL. WILL CONTINUE TO MONITOR CLOSELY.
--- NOTE | 2017-08-13 07:30 | NUR ---
INITIAL ASSESTMENT COMPLETED.TUBE FEEDING EMANS ON HOLD DUE TO HIGH RESIDUALS, [address] DR SOSA HERE MADE AWARE. PT IS NOW FOLLOWING COMMANDS, WILL SQUEEZE HANDS, MOVE FEET AND TURN HEAD TO SPEAKER WHEN ASKED.
[2017-08-13 09:44] LABS: HCO3 22.5 mmol/L (22.0-26.0); PO2 109.2 mmHg (75.0-100.0); pH 7.347 (7.340-7.450)
--- NOTE | 2017-08-13 09:50 | NUR ---
PT TUBE TRIALED, ABG'S OBTAINED DR BARRERA ON UNIT. PT TO BE EXTABATED.
--- NOTE | 2017-08-13 09:50 | NUR ---
SPOKE WITH SON ALMA ON PHONE. HE SAID HE HAS TALKED WITH HIS BROTHER AND ALL FAMILY ARE IN AGREEMENT THAT PATIENT WOULD NOT WANT A TRACH AND PEG. TOLD SON THAT PT IS MORE ALERT TODAY AND IS FOLLOWING SOME COMMANDS. SON AGREES WITH EXTUBATING PATIENT AND SEE HOW HE DOES. SON CONFIRMS THAT FAMILY WANTS TO CONTINUE DNR STATUS, THEY WOULD NOT WANT HIM RE-INTUBATED.
--- NOTE | 2017-08-13 11:51 | EEG ---
[address] [address] EEG STUDY REPORT Name: ALMA DRUMMOND Room: [address] IN .R.#: [id number] Admission: 08/03/17 Attend Phys: Narayan Fine MD Discharge: Date of : 50 Report #: [id number] THIS REPORT FOR: //name// CC: Narayan New DATE OF SERVICE: 08/06/2017 This patient's EEG was done because of unresponsiveness. EEG was done by placing the electrodes by standard 10/20 system of electrode placement. Both referential and sequential montages were used for recording. The patient's EEG demonstrates what appeared to be a burst suppression pattern, but the burst of the activity occurs about 5-6 Hz. Photic stimulation was unremarkable. IMPRESSION: Burst suppression pattern, which is not showing any epileptiform activity. That is a nonspecific abnormality, which can occur with effect of psychotropic medication, encephalopathy, etc. Clinical correlation is recommended. Thank you very much for this referral. <ELECTRONICALLY SIGNED> By: Javier Mack MD 08/13/17 1151 1510 [id number] Mack MD /nt
--- NOTE | 2017-08-13 11:51 | EEG ---
[address] [address] EEG STUDY REPORT Name: ALMA DRUMMOND Room: [address] IN .#: [id number] Admission: 08/03/17 Attend Phys: Narayan Fine MD Discharge: Date of : 50 Report #: [id number] THIS REPORT FOR: //name// CC: Narayan New DATE OF SERVICE: 08/04/2017 INDICATION FOR PROCEDURE: This patient is being evaluated for altered mental status. INTERPRETATION: EEG was done by placing the electrodes by standard 10-20 system of electrode placement. Both referential and sequential montages were used for recording. Background activity in this patient's EEG is about 7 Hz and 30 microvolt. The patient appeared to be asleep on propofol and that is associated with slowing on both sides. Photic stimulation is unremarkable. Throughout the record, no active epileptiform activity was noticed. IMPRESSION: This patient's electroencephalogram is slow and disorganized as a poorly formed background activity. There is a nonspecific abnormality, which can occur with encephalopathy, effect of psychotropic medication, dementia, etc. Clinical correlation is recommended. <ELECTRONICALLY SIGNED> By: Javier Mack MD 08/13/17 1151 [id number] 25Parcaro Mack MD /nt
--- NOTE | 2017-08-13 11:51 | EEG ---
[address] [address] EEG STUDY REPORT Name: ALMA DRUMMOND Room: [address] IN ..#: [id number] Admission: 08/03/17 Attend Phys: Narayan Fine MD Discharge: Date of : 50 Report #: [id number] THIS REPORT FOR: //name// CC: Narayan New DATE OF SERVICE: 08/07/2017 This patient is being evaluated for altered mental status. An EEG was done by comparing with the last EEG. This EEG continued to be extremely disorganized and poorly formed. Background activity in this patient appeared to be about 4-5 Hz and 30 microvolt. Photic stimulation is unremarkable. IMPRESSION: This is a severely abnormal EEG. The abnormality is nonspecific and can occur with encephalopathy, the effect of psychotropic medication, etc. Clinical correlation is recommended. Thank you very much for this referral. <ELECTRONICALLY SIGNED> By: Javier Mack MD 08/13/17 1151 11 Javier Mcak MD /nt
--- NOTE | 2017-08-13 11:51 | CON ---
[address] [address] CONSULTATION Name: BHANUCHAMP Room: [address] ADM IN .R.#: [id number] Admission: 08/03/17 Attend Phys: Narayan Fine MD Discharge: Date of : 50 Report #: [id number] THIS REPORT FOR: //name// CC: Narayan Fine Fredo Cornellhernandez DATE OF SERVICE: 08/04/2017 HISTORY OF PRESENT ILLNESS: This is a 67-year-old male patient who is unable to provide any history at all. Neurology consultation was requested this morning to evaluate any neurological etiology for the patient's altered mental status. I discussed the patient with admitting physician, Dr. Fine and I also discussed the patient with Dr. Rocha, who is ID in this patient. I tried to get hold of the patient's whose number is in the computer, but I am unable to get hold of this patient. This patient was admitted with altered mental status. I reviewed all the records and it looks like he was becoming very agitated and then he has to be intubated. As I understand from Dr. Fine this patient was found with empty bottles of multiple medications including tramadol, oxycodone, citalopram, trazodone, tizanidine. It is not sure when was the last time he took those medications. It is not sure whether he was drinking a lot of alcohol with it. No history is available in this patient. REVIEW OF SYSTEMS: Very limited in this patient. This is mainly from the record. I did attempt 14-point review of system in this patient. When he came in, he had a very high blood pressure and he had hypertensive emergency. He apparently does have chronic pain and he has renal failure and his estimated GFR is 38. It is not clear what his baseline is. That is all the 14-point review of system, which I can get after reviewing the record. PAST MEDICAL HISTORY: The best I can tell from the record, there is no history of stroke in this patient, but apparently he had compression fracture of the neck, multiple other musculoskeletal problem, low back problem, hypertension. FAMILY HISTORY: Not available in this patient. SOCIAL HISTORY: It is not clear if he drank any alcohol or not. PHYSICAL EXAMINATION: Very limited at the moment. He is fully sedated. He is on propofol. His pupils are small and nonreactive. His reflexes are absent. He is intubated and he is on vent. He is a well developed individual who does not have any dysmorphic features of eyes, ears and face. His blood pressure is much better now and it is 142/69, respirations 16, pulse is 68. He has been mostly [place]feb[place] [address] CONSULTATION Name: ALMA DRUMMOND Room: [address] IN ..#: [id number] Admission: 08/03/17 Attend Phys: Narayan Fine MD Discharge: Date of : 50 Report #: [id number] LABORATORY DATA: His white count was high at 13.9. He did have a CT scan of the head when he came in and it showed no acute process. IMPRESSION: Very difficult to form in this patient because of complicated medical issues and my inability to reach family to get any reliable history. I agree that most likely the cause of his problem is drug related. Either he is withdrawing from the medication or alcohol or he may have taken overdose and then trying to withdraw because his drug screen is mostly negative. It is unlikely that he has any ENVIRONMENT[employer] SOLUTIONS ENGINEER infection, but he does appear to have some other infections which may be aspiration and that is why I consulted ID and will defer any evaluation and management to them. I do not think there is any primary ENVIRONMENT[employer] SOLUTIONS ENGINEER etiologies like seizures or strokes, which has happened in this patient, but they will be difficult to fully exclude that. RECOMMENDATIONS: 1. We will get an EEG done. 2. We will try to continue to reach some family. 3. I agree with your plan of doing a banana bag. 4. We will do an MRI depending upon the patient's condition, but presently is unlikely to change any treatment and we will hold it. More than 50 minutes of time was spent taking care of this patient today and majority of that time was spent trying to coordinate this patient's care by talking to multiple other health day care teacher. <ELECTRONICALLY SIGNED> By: Javier Mack MD 08/13/17 1151 1054 [id number] Mack MD /nt
--- NOTE | 2017-08-13 11:53 | EEG ---
[address] [address] EEG STUDY REPORT Name: ALMA DRUMMOND Room: [address] IN .R.#: [id number] Admission: 08/03/17 Attend Phys: Narayan Fine MD Discharge: Date of : 50 Report #: [id number] THIS REPORT FOR: //name// CC: Narayan New DATE OF SERVICE: 08/12/2017 EEG was done for comparison. EEG was done by placing the electrodes by standard 10/20 system of electrode placement. Both referential and sequential montages were used for recording. Background activity in this patient's EEG is about 7-8 Hz and 30 microvolt. Photic stimulation was unremarkable. Throughout the record, no active epileptiform activity was noticed. IMPRESSION: This is a moderately abnormal EEG because it is intermixed with theta range slowing on both sides. That is a nonspecific abnormality, which can occur with encephalopathy, effect of psychotropic medication, dementia. Still reasonably moderately good activity is present. Thank you very much for this referral. <ELECTRONICALLY SIGNED> By: Javier Mack MD 08/13/17 1153 1602 [id number] Mack MD /nt
--- NOTE | 2017-08-13 12:13 | NUR ---
PT EXTABATED AND PLACED ON 50% VENTI MASK AT THIS TIME.
--- NOTE | 2017-08-13 17:20 | NUR ---
WHEN PT CAME BACK FROM CT ASKED THE PT HOW MANY EXTRA PILLS SHE TOOK. SHE SAID THAT SHE TOOK 3 OF HER SOMA. NIH WHEN COMING BACK FROM CT NIH WAS 1 FOR SLURRED SPEECH. GAVE HER ORDERED NARCAN AND DID ANOTHER NIH AFTER THE DOSE WAS GIVEN AND HER NIH WAS 0. PT WANTED TO GO TO THE BATHROOM AND I EXPLAINED TO HER THAT SHE HAD TO USE THE BEDPAN. PT THEN USED THE BEDPAN. TRIED SEVERAL TIMES TO START AN IV WITHOUT ANY YANIRA.
[2017-08-14] VITALS (17 sets, daily range): BP systolic 119–195; BP diastolic 64–102
[2017-08-14 04:39] LABS: ABSOLUTE LYMPHOCYTES 0.6 thou/uL (0.8-5.3); ABSOLUTE MONOCYTES 0.3 thou/uL (0.0-1.2); ABSOLUTE NEUTROPHILS 8.7 thou/uL (1.6-8.1); BASOPHILS 0.4 %; HEMOGLOBIN 11.4 gm/dL (14.0-18.0); LYMPHOCYTES 6.3 %; MCH 29.1 pg (26.0-34.0); MCHC 32.4 g/dL (28.0-37.0); MCV 89.7 fL (80.0-100.0); MONOCYTES 3.4 %; MPV 8.9 fl. (7.2-11.1); NUCLEATED RBCS 0 /100WBC; PLATELET COUNT* 307 thou/uL (150-400); POLYS 89.9 %; RDW-CV 14.7 % (10.5-14.5); WBC 9.6 thou/uL (4.0-11.0)
[2017-08-14 04:59] LABS: ALBUMIN 2.8 g/dL (3.4-5.0); CALCIUM 9.2 mg/dL (8.5-10.1); CREATININE 1.2 mg/dL (0.6-1.3); POTASSIUM 4.3 mmol/L (3.5-5.1); TOTAL BILIRUBIN 0.5 mg/dL (<0.1-1.0)
[2017-08-14 05:55] LABS: PREALBUMIN 48.6 mg/dL (18.0-35.7)
--- NOTE | 2017-08-14 09:50 | NUR ---
7705 ASSUMED CARE OF PATIENT. SEE DOCUMENTED ASSESSMENT. PT ORIENTED TO SELF AND DATE,KNOWS HE IS IN A HOSPITAL. YELLS TO GO HOME AND FOR GRANDDAUGHTER. OT HERE TO WORK WITH PATIENT. DANGLED AT EDGE OF BED WITH OT
--- NOTE | 2017-08-14 11:44 | NUR ---
SEEN BY SPEECH THERAPY AND CLEARED FOR DIET.
--- NOTE | 2017-08-14 13:12 | NUR ---
DR PAUL HERE. ORDERS NOTED AND CHEST FILM DONE
--- NOTE | 2017-08-14 16:18 | NUR ---
BURST OF SVT DURING ALBUTEROL AEROSOL WHICH RESOLVED SPONTANEOUSLY. SEE RHYTHM STRIP.
--- NOTE | 2017-08-14 17:19 | NUR ---
PATIENT PROGRESSING TOWARDS GOALS ALTHOUGH REMAINS CONFUSED. ADVANCED TO SOLID FOODS. SAT AT EDGE OF BED WITH PT AND OT BUT UNABLE TO STAND . PATIENT MUST BE FED. HAS BEEN COOP[ERATIVE MORE THE DAY PROGRESSED. PT HAD BURST OF SVT DURING AEROSOL THIS AFTERNOON. SON VISITED BUT PT WAS NOT RECEPTIVE TO HIM
[2017-08-15] VITALS (10 sets, daily range): BP systolic 130–176; BP diastolic 68–96
[2017-08-15 05:23] LABS: HEMATOCRIT 34.2 % (42.0-52.0); HEMOGLOBIN 11.2 gm/dL (14.0-18.0); MCH 29.1 pg (26.0-34.0); MCHC 32.8 g/dL (28.0-37.0); MCV 88.9 fL (80.0-100.0); MPV 9.2 fl. (7.2-11.1); RBC 3.85 mil/uL (4.50-6.00); RDW-CV 14.7 % (10.5-14.5); WBC 7.9 thou/uL (4.0-11.0)
[2017-08-15 05:44] LABS: ALBUMIN 2.8 g/dL (3.4-5.0); CALCIUM 9.1 mg/dL (8.5-10.1); CREATININE 1.2 mg/dL (0.6-1.3); POTASSIUM 4.5 mmol/L (3.5-5.1); TOTAL BILIRUBIN 0.5 mg/dL (<0.1-1.0); TOTAL PROTEIN 6.7 g/dL (6.4-8.2)
--- NOTE | 2017-08-15 06:00 | NUR ---
PROGRESSING TOWARDS GOALS, AWAKE, ALERT, AND CONVERSATIVE, INTERMITTENT CONFUSION, EASILY REORIENTED PRN, ROOM AIR, NO DIFFICULTY BREATHING, NO SEIZURE ACTIVITY DURING NOC, FOLLOWS SIMPLE COMMANDS, EDUCATED USE OF CALL LIGHT FOR NEEDS, WANTS, OOB, OR ANY CHANGE IN CONDITION, NOT USING CALL LIGHT THIS SHIFT, HOLLERING OUT FOR HELP NEEDED, ASSIST PROVIDED WITH PO INTAKE. CALL LIGHT REMAINS IN REACH, BED REMAINS IN LOW AND LOCKED POSITON, BED ALARM ON FOR SAFETY.
--- NOTE | 2017-08-15 12:44 | NUR ---
PATIENT IS NOW TELE STATUS PER DR PAUL. GAVE PATIENT BED BATH AND HE HELPED. CHANGE SHEETS WELL. SITTING UP EATING LUNCH AT THIS TIME.
--- NOTE | 2017-08-15 16:51 | NUR ---
RECEIVED REPORT FROM ICU. PT TO TRANSFER TO RM 221. WILL TRANSFER PT PER NURSING STAFF VIA BED.
--- NOTE | 2017-08-15 17:51 | NUR ---
PATIENT PROGRESSED WELL TOWARDS GOALS TODAY. EASILY REDIRECTABLE. VERY PLEASANT AND COOPERATIVE. BY DINNER WAS ABLE TO FEED HIMSELF INDEPENDENTLY. SISTER CALLED TO CHECK ON PATIENT TODAY. PATIENT WENT TO ROOM 221 WITH NURSING STAFF BY BED. ALL QUESTIONS ANSWERED. ALL BELONGINGS, CHART AND MEDICATIONS SENT WITH PATIENT.
--- NOTE | 2017-08-15 18:46 | NUR ---
RECEIVED PT TRANSFER FROM ICU AT 1820. PT EDUCATED ON ROOM, URINAL PROVIDED. SEIZURE PRECAUTIONS/FALL PRECAUTIONS IN PLACE. BED ALARM ACTIVE, BED IN LOW AND LOCKED POSITION. CALL BUTTON AND PERSONAL ITEMS IN PT REACH. MEDICATIONS PLACED IN PT ACCESS BOX IN PYXIS AND REFRIGERATOR. PT A&O X4, OCC. FORGETFUL AND CONFUSED. PT PROGRESSING TOWARDS GOAL. REPORT TO BE GIVEN TO SUBPOENA SERVER FOR CONTINUED CARES. SA ON STEAM TABLE ATTENDANT WITH PAC'S. LUNGS MILD WHEEZE BILATERALLY, DIMINISHED LL. LINDSEY PATENT WITH DARK YELLOW/CLEAR URINE. PT MAX ASSIST WITH GAIT BELT. PT DNR. LEFT UE DOUBLE LUMEN PICC PATENT TO FLUSH, SALINE LOCKED AT THIS TIME. FENTANYL PATCH AND CLONIDINE PATCH ON RIGHT SHOULDER. Q2 TURN, PT WEAK ON LEFT SIDE R/T HOSPITALIZATION AND INTUBATION. REGULAR MECHANICAL CHOPPED DIET, PT DOES NOT HAVE TEETH OR DENTURES. THIN LIQUIDS ALLOWED. LIKES TO TAKE MEDS IN APPLESAUCE BY CHOICE. WILL CONTINUE TO MONITOR PT STATUS.
--- NOTE | 2017-08-16 03:28 | NUR ---
ASSUMED CARE OF PT AT 1900. PT IS ALERT AND ORIENTED. NO COMPLAINTS OF PAIN. VSS. PERRLA. PT IS IN SINUS RYTHM WITH PAC'S. PT IS SLEEPING QUIETLY IN BED. RESPIRATIONS ARE EVEN AND NONLABORED. WILL CONTINUE TO MONITOR PT.
[2017-08-16 03:59] VITALS: BP 160/83
[2017-08-16 06:41] LABS: HEMATOCRIT 33.5 % (42.0-52.0); HEMOGLOBIN 11.1 gm/dL (14.0-18.0); MCH 29.3 pg (26.0-34.0); MCHC 33.1 g/dL (28.0-37.0); MCV 88.5 fL (80.0-100.0); MPV 9.2 fl. (7.2-11.1); RBC 3.79 mil/uL (4.50-6.00); RDW-CV 15.1 % (10.5-14.5); WBC 8.2 thou/uL (4.0-11.0)
[2017-08-16 06:54] LABS: CALCIUM 8.6 mg/dL (8.5-10.1); CREATININE 1.2 mg/dL (0.6-1.3); MAGNESIUM 1.7 mg/dL (1.8-2.4); POTASSIUM 4.5 mmol/L (3.5-5.1)
[2017-08-16 08:00] VITALS: BP 169/82
--- NOTE | 2017-08-16 11:38 | NUR ---
ASSUMED PT CARE AT 0730, FULL ASSESMENT DONE CHARTED. PT A/O X4, SR/BBB/PVC'S ON THE MONITOR. PT TALKS TO SELF IN ROOM, THROWING BREAKFAST ITEMS ON FLOOR, PULLING WRIST BANDS OFF. PT CALMS WHEN STAFF IN ROOM TALKING TO HIM. HE STATES HE WANTS TO GO HOME, PT STATES HE DOES NOT HAVE A HOME BUT WOULD STAY WITH HIS SISTER IN [place]. LINDSEY DRAINING YELLOW URINE, DOUBLE PICC LEFT UPPER ARM DRAWING BLOOD. SEIZURE PRECAUTIONS IN PLACE, FALL PRECATUIONS IN PLACE. CALL LIGHT IN REACH. WILL CONTINUE WITH PLAN OF CARE.
[2017-08-16 12:06] VITALS: BP 148/76
[2017-08-16 19:08] VITALS: BP 133/76
[2017-08-17] VITALS: BP 124/56
[2017-08-17 04:00] VITALS: BP 135/61
--- NOTE | 2017-08-17 04:14 | NUR ---
ASSUMED CARE OF PT AT 1930, NURSING ASSESSMENT COMPLETED AT START OF SHIFT, PT VOICED NO CONCERNS, PT CONTINUES ON TELE MONITOR TRACING SINUS RHYTHM WITH PVCS. DR. DUMONT NOTIFIED OF 1.7 MG AT 2100, NO NEW ORDERS RECEIVED AT THIS TIME. SEIZURE PRECAUTIONS IN PLACE, BED ALARM ON, CALL LIGHT WITHIN REACH. PT EDUCATED ON IMPORTANCE OF USING CALL LIGHT FOR ASSISSTANCE, PT OBSERVED ATTEMPTING TO CLIMB OUT OF BED, PT REEDUCATED ON FALL PRECAUTIONS. HOURLY ROUNDING COMPLETED, Q2H TURNS COMPLETED, CALL LIGHT REMAINS WITHIN REACH.
[2017-08-17 08:28] VITALS: BP 138/63
--- NOTE | 2017-08-17 10:51 | NUR ---
CM SPOKE TO DR SOSA AND HE INFORMS THAT THE PATIENT SHOULD D/C TOMORROW. CM SPOKE TO THE PATIENT TO DISCUSS DISCHARGE PLANNING NEEDS AND WHERE HE WILL GO AT D/C. PATIENT STATES THAT HE PLANS TO GO TO HIS SISTER MOIRA'S HOME, BUT HAS NOT BEEN ABLE TO CONTACT HER ANS REQUESTED THAT CM ATTEMPT TO CONTACT HER. CM ATTEMPTED TO CONTACT MOIRA AND LEFT A VOICEMAIL TO RETURN CALL TO DISCUSS ABILITY TO ALLOW THE PATIENT TO STAY IN HER HOME. CM WILL REMAIN AVAILABLE TO ASSIST AND FOLLOW NEEDED.
[2017-08-17 12:05] VITALS: BP 134/60
--- NOTE | 2017-08-17 14:36 | NUR ---
DISCUSSED WITH ANGELI OLIVARES. PT MAY QUALIFY FOR SNF. MET WITH PT, HE IS AGREEABLE TO THAT AND HAS NO PREFERENCE, JUST ONE IN HIS INSURANCE NETWORK. CALLED AND FAXED REFERRAL TO [facility]. AWAIT CALL BACK
[2017-08-17 15:32] VITALS: BP 159/76
--- NOTE | 2017-08-17 20:01 | NUR ---
RECEIVED DISCHARGE ORDERS. PER DR REQUEST NEURO CALLED AND CLARIFIED KEPPRA FOR DISCHARGE. PT TO TAKE 500MG KEPPRA PO BID AND FOLLOW UP WITH NEURO IN 2 WEEKS. ORDERS WRITTEN. ALL BELONGINGS LEFT WITH PT. PT HAD BELONGINGS IN SECURITY. SECURITY CALLED AND GAVE PT BELONGINGS. PT LEFT WITH PICC LINE IN PLACED. GAVE REPORT TO JEAN MEDEL AT [facility]. JEAN REPORTED SHE CAN TAKE OUT PICC LINE TONIGHT OR TOMORROW IN AM.
[2017-08-17] MEDS ORDERED: VENTOLIN HFA 1818 GM INH (20:11)
[2017-08-17] MEDS ORDERED: KEPPRA 500 MG500 M1 PO (20:12)
[2017-08-17] MEDS ORDERED: ZESTORETIC 20-1 EAC3 PO (20:13)
[2017-08-17] MEDS ORDERED: PREDNISONE 10 M10 MG PO (20:14)
[2017-08-17 20:15] VITALS: BP 159/76
--- NOTE | 2017-08-17 20:16 | NUR ---
PT LEFT GLASSES IN ROOM. GLASSES SENT TO SECURITY.
== END 2017-08-17 18:05 | DRG 207 ==
LOC: M.ERS 12:13 → M.ICU 14:15 → M.TBA-ER 14:15 → M.ICU 17:45 → M.2W 08-15 18:09
PROVIDERS: Emergency Medicine Emergency Medical Services; Family Medicine; Internal Medicine Pulmonary Disease; Psychiatry & Neurology Neuromuscular Medicine; ADMIT Internal Medicine
PROC: 5A1955Z Respiratory Ventilation, Greater than 96 Consecutive Hours (ICD-10-PCS; principal; 2017-08-03)
PROC: 0BH17EZ Insertion of Endotracheal Airway into Trachea, Via Natural or Artificial Opening (ICD-10-PCS; principal; 2017-08-03)
PROC: 009U3ZX Drainage of Spinal Canal, Percutaneous Approach, Diagnostic (ICD-10-PCS; 2017-08-08)
PROC: 05HF33Z Insertion of Infusion Device into Left Cephalic Vein, Percutaneous Approach (ICD-10-PCS; 2017-08-11)
DX: J69.0 Pneumonitis due to inhalation of food and vomit (principal); G93.40 Encephalopathy, unspecified; N17.0 Acute kidney failure with tubular necrosis; J96.00 Acute respiratory failure, unspecified whether with hypoxia or hypercapnia; R65.11 Systemic inflammatory response syndrome (SIRS) of non-infectious origin with acute organ dysfunction; I16.1 Hypertensive emergency; J98.11 Atelectasis; G93.1 Anoxic brain damage, not elsewhere classified; E44.0 Moderate protein-calorie malnutrition; F15.10 Other stimulant abuse, uncomplicated; G89.4 Chronic pain syndrome; E86.0 Dehydration; I12.9 Hypertensive chronic kidney disease with stage 1 through stage 4 chronic kidney disease, or unspecified chronic kidney disease; I16.0 Hypertensive urgency; D64.9 Anemia, unspecified; N18.9 Chronic kidney disease, unspecified; Z87.81 Personal history of (healed) traumatic fracture; Z88.6 Allergy status to analgesic agent; Z88.5 Allergy status to narcotic agent; Z88.8 Allergy status to other drugs, medicaments and biological substances; Z68.32 Body mass index [BMI] 32.0-32.9, adult